=== PATIENT | female | born 1955 | race Caucasian/White ===

== ENCOUNTER 2016-06-18 14:00 | Emergency (ER) | payer OTHER ==
[~2016-06-18] VITALS: Ht 160 cm; Wt 83.9 kg
[~2016-06-18 14:00] MED LIST: LISI10TA11 PO; METO50TE14 PO; METO50TE2 PO
[2016-06-18 14:44] VITALS: BP 155/96
--- NOTE | 2016-06-18 15:06 | NUR ---
Dr. Andrade evaluating patient.
--- NOTE | 2016-06-18 15:06 | NUR ---
Patient to OF.
--- NOTE | 2016-06-18 15:17 | NUR ---
61/F presents to ED for evalaution of left shoulder pain x1 month. 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 Pt c/o sharp, shooting pain, intermittent. Patient is AOX4, ambulates with steady gait. VSS.
--- NOTE | 2016-06-18 15:31 | NUR ---
Patient to bed 08.
[2016-06-18 16:09] VITALS: BP 135/86
--- NOTE | 2016-06-18 16:09 | NUR ---
Patient discharged with v/s stable. Written and verbal after care instructions given and explained. Patient alert, oriented and verbalized understanding of instructions. Ambulatory with steady gait. All questions addressed prior to discharge. ID band removed. Patient advised to follow up with PMD. Rx of motrin,robaxin given. Patient educated on indication of medication including possible reaction and side effects. Opportunity to ask questions provided and answered.
--- NOTE | 2016-06-18 16:09 | NUR ---
Chart checked and completed. The patient's care was reviewed and supervised by Sarah Ferro RN.
== END 2016-06-18 16:09 | disposition home or self-care (01) ==
LOC: MED 14:00
DX: M75.92 Shoulder lesion, unspecified, left shoulder (principal); I10 Essential (primary) hypertension
CPT/HCPCS: 73030; 99284

== ENCOUNTER 2017-08-30 20:19 | Emergency (ER) | payer OTHER ==
[~2017-08-30] VITALS: Ht 160 cm; Wt 81.6 kg
[~2017-08-30 20:19] MED LIST changes: -METO50TE14 PO
[2017-08-30 20:23] VITALS: BP 154/90
--- NOTE | 2017-08-30 20:26 | NUR ---
TO BED# 11 AMB. REPORT GIVEN TO BLAINE HORN.
--- NOTE | 2017-08-30 20:28 | NUR ---
PATIENT PRESENTS TO ED WITH left leg numbness since 8 am. patient states "i was driving in my car with my legs crossed and when i got to work i fell, and when i was walking upstairs i fell again". patient denies hitting her head or any loc. PT DENIES N/V/D; SKIN IS PINK/WARM/DRY; AAOX4 WITH EVEN AND STEADY GAIT; LUNGS CLEAR BL; HR EVEN AND REGULAR; PT DENIES ANY FEVER, CP, SOB, OR COUGH AT THIS TIME; PATIENT STATES PAIN OF 0/10 AT THIS TIME; VSS; PATIENT POSITIONED FOR COMFORT; HOB ELEVATED; BEDRAILS UP X1; BED DOWN. ER MD MADE AWARE OF PT STATUS.
[2017-08-30] MEDS ORDERED: KETOROLAC 60 MG/2 ML VIAL IM ONE (20:35)
[2017-08-30 21:01] VITALS: BP 154/90
== END 2017-08-30 20:58 | disposition home or self-care (01) ==
LOC: MED 20:19
DX: R20.0 Anesthesia of skin (principal); R53.1 Weakness; I10 Essential (primary) hypertension; W18.39XA Other fall on same level, initial encounter; Y93.89 Activity, other specified; Y99.8 Other external cause status; Y92.89 Other specified places as the place of occurrence of the external cause
CPT/HCPCS: 96372; 99283; J1885

== ENCOUNTER 2018-05-27 08:53 | Emergency (ER) | payer OTHER ==
[~2018-05-27] VITALS: Ht 160 cm; Wt 82.6 kg
[2018-05-27 08:58] VITALS: BP 145/101
--- NOTE | 2018-05-27 09:03 | NUR ---
PT AMBULATES TO BED 7
--- NOTE | 2018-05-27 09:09 | NUR ---
BIB SELF WITH C/O COUGH SINCE TUESDAY WITH WHEEZING STARTED YESTERDAY. PATIENT SPEAKING IN FULL CLEAR SENTENCES. PATIENT STATES PAIN OF 2/10 AT THIS TIME; VSS; PATIENT POSITIONED FOR COMFORT; HOB ELEVATED; BEDRAILS UP X1; BED DOWN. ER MD MADE AWARE OF PT STATUS.
[2018-05-27 09:22] VITALS: BP 130/90
--- NOTE | 2018-05-27 09:23 | NUR ---
Patient discharged with v/s stable. Written and verbal after care instructions given and explained. Patient alert, oriented and verbalized understanding of instructions. Ambulatory with steady gait. All questions addressed prior to discharge. ID band removed. Patient advised to follow up with PMD. Rx of ALBUTEROL AND PREDNISONE given. Patient educated on indication of medication including possible reaction and side effects. Opportunity to ask questions provided and answered.
== END 2018-05-27 09:23 | disposition home or self-care (01) ==
LOC: MED 08:53
DX: J98.01 Acute bronchospasm (principal); J40 Bronchitis, not specified as acute or chronic; I10 Essential (primary) hypertension; Z79.899 Other long term (current) drug therapy
CPT/HCPCS: 99283

== ENCOUNTER 2019-10-15 18:06 | Emergency (ER) | payer OTHER ==
[~2019-10-15] VITALS: Ht 160 cm; Wt 83.9 kg
[2019-10-15 18:11] VITALS: BP 145/96
[2019-10-15 20:19] LABS: BASOPHILS # (AUTO) 0.1 K/uL (0.00-0.22); BASOPHILS % (AUTO) 0.5 % (0.0-2.0); EOSINOPHILS # (AUTO) 0.3 K/uL (0-0.4); HEMATOCRIT 43.5 % (36-48); HEMOGLOBIN 14.2 g/dL (12.0-16.0); LYMPHOCYTES # (AUTO) 3.5 K/uL (2.5-16.5); LYMPHOCYTES % (AUTO) 31.3 % (20.5-51.1); MEAN CORPUSCULAR HEMOGLOBIN 30 pg (27-31); MEAN CORPUSCULAR HGB CONC 33 g/dL (33-37); MEAN CORPUSCULAR VOLUME 92.8 fL (80-94); MONOCYTES # (AUTO) 0.7 K/uL (0.8-1.0); MONOCYTES % (AUTO) 6.4 % (1.7-9.3); NEUTROPHILS # (AUTO) 6.5 K/uL (1.8-7.7); NEUTROPHILS % (AUTO) 58.8 % (42.2-75.2); PLATELET COUNT (AUTO) 306 K/uL (140-450); RED BLOOD CELL COUNT(AUTO) 4.69 MIL/uL (4.20-5.40); RED CELL DISTRIBUTION WIDTH 12.9 % (11.6-13.7)
[2019-10-15 20:38] LABS: PROTHROMBIN TIME 10.3 secs (10.8-13.4)
[2019-10-15 20:40] LABS: ANION GAP 12.2 (8-16); CARBON DIOXIDE 28.7 mmol/L (21-32); POTASSIUM 3.9 mmol/L (3.5-5.1)
[2019-10-15 20:46] LABS: ALBUMIN 3.9 g/dL (3.4-5.0); TOTAL BILIRUBIN 0.5 mg/dL (0.0-1.0)
[2019-10-15] MEDS ORDERED: ACETAMINOPHEN 325 MG TAB PO ONE (21:50)
[2019-10-16 00:05] VITALS: BP 142/92
== END 2019-10-16 00:05 | disposition home or self-care (01) ==
LOC: MED 18:06
DX: R07.89 Other chest pain (principal)
CPT/HCPCS: 36415; 71045; 80053; 81002; 83880; 84484; 85025; 85379; 85610; 85730; 93005; 99285

== ENCOUNTER 2022-01-11 10:14 | Emergency (ER) | payer OTHER ==
[~2022-01-11] VITALS: Ht 165.1 cm; Wt 74.8 kg
[~2022-01-11 10:14] MED LIST changes: +LISI-486 PO; -LISI10TA11 PO
[2022-01-11 10:26] VITALS: BP 159/90
--- NOTE | 2022-01-11 11:57 | NUR ---
PT AMBULATED TO BED 10
--- NOTE | 2022-01-11 12:17 | NUR ---
PT C/O RIGHT FOOT PAIN S/P FALL X1 WEEK, CORRECTIONS SERGEANT LESS THAN 3 SECONDS, NO SWELLING OR OPEN LAC NOTED. DENIES ANY NUMBNESS OR TINGLING PMH: HTN
[2022-01-11] MEDS ORDERED: TRAM50TA3 PO (12:49)
--- NOTE | 2022-01-11 12:58 | NUR ---
Patient discharged with v/s stable. Written and verbal after care instructions ABOUT FOOT CONTUSION given and explained. Patient alert, oriented and verbalized understanding of instructions. Ambulatory with steady gait. All questions addressed prior to discharge. ID band removed. Patient advised to follow up with PMD. Rx of TRAMADOL given. Patient educated on indication of medication including possible reaction and side effects. Opportunity to ask questions provided and answered.
== END 2022-01-11 12:58 | disposition home or self-care (01) ==
LOC: MED 10:14
DX: S90.31XA Contusion of right foot, initial encounter (principal); I10 Essential (primary) hypertension; Z79.899 Other long term (current) drug therapy; W18.30XA Fall on same level, unspecified, initial encounter; Y93.89 Activity, other specified; Y92.89 Other specified places as the place of occurrence of the external cause; Y99.8 Other external cause status
CPT/HCPCS: 73630; 99283